=== PATIENT | male | born 1980 | race Caucasian/White ===

== ENCOUNTER 2016-11-04 09:12 | Emergency (ER) | payer MEDICARE, MEDICAID ==
[~2016-11-04] VITALS: Ht 175.3 cm; Wt 76.0 kg
[2016-11-04] MEDS ORDERED: LORAZEPAM 1MG TABLET PO ONE (10:45)
[2016-11-04 10:46] LABS: BASOPHILS % 0.2 % (0.0-2.0); EOSINOPHILS % 1.3 % (0.0-5.0); HEMATOCRIT. 42.2 % (42.0-52.0); HEMOGLOBIN. 14.7 g/dL (14.0-18.0); LYMPHOCYTES % 15.7 % (20.0-50.0); MEAN CORPUSCULAR HEMOGLOBIN 30.3 pg (28.0-32.0); MEAN CORPUSCULAR HGB CONC 34.7 g/dL (31.0-37.0); MEAN CORPUSCULAR VOLUME 87.3 fL (80.0-94.0); MEAN PLATELET VOLUME 7.6 fl (7.4-10.4); MONOCYTES % 5.2 % (2.0-8.0); NEUTROPHILS % 77.6 % (40.0-76.0); PLATELET 339 x1000/uL (130-400); RED BLOOD CELL COUNT 4.83 mill/uL (4.7-6.1); RED CELL DISTRIBUTION WIDTH 14.1 % (11.6-14.6); WHITE BLOOD COUNT 8.9 x1000/uL (4.5-11.0)
[2016-11-04 10:58] LABS: ACETAMINOPHEN < 2 ug/mL (10-30); ALANINE AMINOTRANSFERASE 35 IU/L (13-61); ALBUMIN 4.1 g/dL (3.4-5.0); ANION GAP 12; CALCIUM 8.8 mg/dL (8.5-10.1); CARBON DIOXIDE 23 mEq/L (21-32); CHLORIDE 107 mEq/L (98-107); ETHANOL BLOOD < 10 mg/dL; INDEX HEMOLYSI 1 (1-3); INDEX ICTERIC 1 (1-4); INDEX LIPEMIC 1 (1-3); UREA NITROGEN BLOOD 12 mg/dL (7-21); eGFR > 60 mL/min (>60)
[2016-11-04 11:40] LABS: CLARITY URINE CLEAR (CLEAR); COLOR URINE YELLOW (YELLOW); GLUCOSE URINE NEGATIVE (NEGATIVE); KETONES URINE NEGATIVE (NEGATIVE); LEUKOCYTE ESTERASE URINE NEGATIVE (NEGATIVE); NITRITE URINE NEGATIVE (NEGATIVE); OCCULT BLOOD URINE NEGATIVE (NEGATIVE); PROTEIN URINE NEGATIVE (NEGATIVE); SPECIFIC GRAVITY URINE 1.015 (1.005-1.030)
[2016-11-04 12:02] LABS: *AMPHETAMINES SCREEN URINE NEGATIVE (NEGATIVE); *BARBITURATES SCREEN URINE NEGATIVE (NEGATIVE); *BENZODIAZEPINES SCREEN URINE NEGATIVE (NEGATIVE); *COCAINE SCREEN URINE NEGATIVE (NEGATIVE); CANNABINOID URINE SCREEN NEGATIVE (NEGATIVE); ECSTASY MDMA SCREEN URINE NEGATIVE (NEGATIVE); METHADONE URINE SCREEN NEGATIVE (NEGATIVE); OPIATES URINE SCREEN NEGATIVE (NEGATIVE); PHENCYCLIDINE URINE SCREEN NEGATIVE (NEGATIVE)
[2016-11-04 13:30] VITALS: BP 127/71
== END 2016-11-04 14:02 | disposition left against medical advice (07) ==
LOC: ER 09:32
DX: F31.9 Bipolar disorder, unspecified (principal); G40.909 Epilepsy, unspecified, not intractable, without status epilepticus
CPT/HCPCS: 36415; 80053; 80305; 80307; 80329; 81003; 85025; 99284; G0482

== ENCOUNTER 2019-07-23 13:01 | Emergency (ER) | payer MEDICARE, MEDICAID ==
[~2019-07-23] VITALS: Ht 172.7 cm; Wt 90.0 kg
[2019-07-23] MEDS ORDERED: PHEN-434 PO (13:10)
[2019-07-23] MEDS ORDERED: LORAZEPAM 2MG/ML CPJ IV ONE (15:15)
[2019-07-23] MEDS ORDERED: LEVETIRACETAM 1000MG/100ML 100 ML IV ONE (15:15)
[2019-07-23 15:49] LABS: BASOPHILS % 0.3 % (0.0-2.0); CHLORIDE 109 mEq/L (98-107); EOSINOPHILS % 1.2 % (0.0-5.0); HEMATOCRIT. 41.4 % (42.0-52.0); HEMOGLOBIN. 13.9 g/dL (14.0-18.0); MEAN CORPUSCULAR HEMOGLOBIN 29.1 pg (28.0-32.0); MEAN CORPUSCULAR VOLUME 86.5 fL (80.0-94.0); MEAN PLATELET VOLUME 7.2 fl (7.4-10.4); MONOCYTES % 3.3 % (2.0-8.0); NEUTROPHILS % 81.2 % (40.0-76.0); PLATELET 329 x1000/uL (130-400); RED BLOOD CELL COUNT 4.78 mill/uL (4.7-6.1); RED CELL DISTRIBUTION WIDTH 13.9 % (11.6-14.6)
[2019-07-23 15:53] LABS: ETHANOL BLOOD < 10 mg/dL
[2019-07-23 17:06] VITALS: BP 125/88
== END 2019-07-23 18:30 | disposition home or self-care (01) ==
LOC: ER 13:13
DX: G40.909 Epilepsy, unspecified, not intractable, without status epilepticus (principal); R41.82 Altered mental status, unspecified
CPT/HCPCS: 36415; 70450; 80053; 80320; 85025; 93005; 96365; 96375; 99284; J1953; J2060; G0480

== ENCOUNTER 2021-12-22 15:48 | Emergency (ER) | payer MEDICARE, MEDICAID ==
[~2021-12-22] VITALS: Ht 177.8 cm; Wt 73.0 kg
[~2021-12-22 15:48] MED LIST: PHEN-434 PO
[2021-12-22] MEDS ORDERED: ACETAMINOPHEN 325MG TABLET PO PRN (16:30)
[2021-12-22 17:22] LABS: CHLORIDE 109 mEq/L (98-107)
[2021-12-22 17:28] LABS: ETHANOL BLOOD < 10 mg/dL
[2021-12-22 17:34] LABS: BASOPHILS % 0.3 % (0.0-2.0); EOSINOPHILS % 6.1 % (0.0-5.0); HEMOGLOBIN. 12.8 g/dL (14.0-18.0); LYMPHOCYTES % 21.6 % (20.0-50.0); MEAN CORPUSCULAR HEMOGLOBIN 31.8 pg (28.0-32.0); MEAN CORPUSCULAR VOLUME 89.4 fL (80.0-94.0); MEAN PLATELET VOLUME 7.4 fl (7.4-10.4); MONOCYTES % 5.1 % (2.0-8.0); NEUTROPHILS % 66.9 % (40.0-76.0); PLATELET 260 x1000/uL (130-400); RED BLOOD CELL COUNT 4.03 mill/uL (4.7-6.1); RED CELL DISTRIBUTION WIDTH 13.4 % (11.6-14.6)
[2021-12-22] MEDS ORDERED: QUETIAPINE FUMARATE 50MG TABLET PO NR (21:15)
[2021-12-22] MEDS ORDERED: CLONAZEPAM 1MG TABLET PO SCH (21:45)
[2021-12-22] MEDS ORDERED: HYDROXYZINE 25MG TABLET PO PRN (21:45)
[2021-12-22] MEDS: LAMOTRIGINE 100MG TABLET PO SCH (21:45)
[2021-12-22] MEDS ORDERED: LORAZEPAM 1MG TABLET PO PRN (21:45)
[2021-12-22 23:32] LABS: CLARITY URINE CLEAR (CLEAR); COLOR URINE YELLOW (YELLOW); KETONES URINE NEGATIVE (NEGATIVE); LEUKOCYTE ESTERASE URINE NEGATIVE (NEGATIVE); NITRITE URINE NEGATIVE (NEGATIVE); OCCULT BLOOD URINE NEGATIVE (NEGATIVE); PH URINE 6.5 (4.5-8.0); PROTEIN URINE NEGATIVE (NEGATIVE); SPECIFIC GRAVITY URINE 1.013 (1.005-1.030); UROBILINOGEN URINE 0.2 E.U./dL (0.2-1.0)
[2021-12-22 23:45] LABS: *AMPHETAMINES SCREEN URINE NEGATIVE (NEGATIVE); *BARBITURATES SCREEN URINE NEGATIVE (NEGATIVE); *BENZODIAZEPINES SCREEN URINE PRESUMTIVE POSITIVE (NEGATIVE); *COCAINE SCREEN URINE NEGATIVE (NEGATIVE); CANNABINOID URINE SCREEN NEGATIVE (NEGATIVE); METHADONE URINE SCREEN NEGATIVE (NEGATIVE); OPIATES URINE SCREEN NEGATIVE (NEGATIVE); PHENCYCLIDINE URINE SCREEN NEGATIVE (NEGATIVE)
[2021-12-23] MEDS: LAMOTRIGINE 100MG TABLET PO SCH (08:59)
[2021-12-23] MEDS ORDERED: OXCARBAZEPINE 300MG TABLET PO SCH (09:00)
[2021-12-23 10:09] VITALS: BP 112/69
== END 2021-12-23 11:05 | disposition home or self-care (01) ==
LOC: ER 15:48
DX: F32.9 Major depressive disorder, single episode, unspecified (principal); R45.851 Suicidal ideations; F20.9 Schizophrenia, unspecified; Z20.822 Contact with and (suspected) exposure to COVID-19
CPT/HCPCS: 36415; 80053; 80305; 80320; 81003; 85025; 99285; C9803; U0003; U0005; G0480

== ENCOUNTER 2024-10-11 18:23 | Emergency (ER) | payer MEDICARE, MEDICAID ==
[~2024-10-11] VITALS: Ht 172.7 cm; Wt 98.0 kg
[2024-10-11 18:28] VITALS: O2SAT 100
[2024-10-11 20:02] LABS: BASOPHILS % 0.2 % (0.0-2.0); HEMATOCRIT. 39.7 % (42.0-52.0); HEMOGLOBIN. 13.3 g/dL (14.0-18.0); LYMPHOCYTES % 7.9 % (20.0-50.0); MEAN CORPUSCULAR HEMOGLOBIN 30.5 pg (28.0-32.0); MEAN CORPUSCULAR HGB CONC 33.5 g/dL (31.0-37.0); MEAN PLATELET VOLUME 8.2 fl (7.4-10.4); NEUTROPHILS % 86.9 % (40.0-76.0); PLATELET 296 x1000/uL (130-400); RED BLOOD CELL COUNT 4.36 mill/uL (4.7-6.1); RED CELL DISTRIBUTION WIDTH 13.4 % (11.6-14.6); WHITE BLOOD COUNT 11.7 x1000/uL (4.5-11.0)
[2024-10-11 20:10] LABS: CARBON DIOXIDE 24 mEq/L (21-32); CHLORIDE 112 mEq/L (98-107); POTASSIUM 3.2 mEq/L (3.5-5.1); SODIUM 145 mEq/L (136-145)
[2024-10-11 20:11] LABS: CALCIUM 9.8 mg/dL (8.7-10.4)
[2024-10-11 20:16] LABS: CREATININE 0.8 mg/dL (0.6-1.3); GLUCOSE 121 mg/dL (70-105)
[2024-10-11 20:17] LABS: ETHANOL BLOOD < 10 mg/dL (<10); UREA NITROGEN BLOOD 7 mg/dL (9-23)
[2024-10-11 20:18] LABS: ACETAMINOPHEN < 2 ug/mL (10-30)
[2024-10-11] MEDS: LEVETIRACETAM 500MG TABLET PO SCH (21:30)
[2024-10-11 21:37] LABS: CLARITY URINE CLEAR (CLEAR); COLOR URINE YELLOW (YELLOW); GLUCOSE URINE NEGATIVE (NEGATIVE); KETONES URINE TRACE (NEGATIVE); LEUKOCYTE ESTERASE URINE NEGATIVE (NEGATIVE); NITRITE URINE NEGATIVE (NEGATIVE); OCCULT BLOOD URINE NEGATIVE (NEGATIVE); PH URINE 5.5 (4.5-8.0); PROTEIN URINE TRACE (NEGATIVE); SPECIFIC GRAVITY URINE 1.017 (1.005-1.030)
[2024-10-11 21:48] LABS: *AMPHETAMINES SCREEN URINE NEGATIVE (NEGATIVE); *BARBITURATES SCREEN URINE NEGATIVE (NEGATIVE); *BENZODIAZEPINES SCREEN URINE NEGATIVE (NEGATIVE)
[2024-10-11 21:49] LABS: *COCAINE SCREEN URINE NEGATIVE (NEGATIVE); CANNABINOID URINE SCREEN NEGATIVE (NEGATIVE); ECSTASY MDMA SCREEN URINE NEGATIVE (NEGATIVE); METHADONE URINE SCREEN NEGATIVE (NEGATIVE); OPIATES URINE SCREEN NEGATIVE (NEGATIVE); PHENCYCLIDINE URINE SCREEN NEGATIVE (NEGATIVE)
[2024-10-11 21:55] LABS: BACTERIA URINE NONE SEEN; RBC URINE NONE SEEN /hpf (0-2); SQUAMOUS EPITHELIAL CELL URINE RARE /lpf (RARE/1+); WBC URINE NONE SEEN /hpf (0-2)
[2024-10-12] MEDS: POTASSIUM CHLORIDE 20MEQ/PACKET PO ONE (00:10)
[2024-10-12] MEDS: HALOPERIDOL LACTATE 5MG/ML VIAL IM ONE (00:10)
[2024-10-12 09:59] VITALS: BP 118/65; PULSE 70; RESP 18; TEMP 37.1; O2SAT 100
== END 2024-10-12 10:52 | disposition home or self-care (01) ==
LOC: ER 18:23
DX: F20.9 Schizophrenia, unspecified (principal); F31.9 Bipolar disorder, unspecified; G40.909 Epilepsy, unspecified, not intractable, without status epilepticus; Z79.899 Other long term (current) drug therapy; Z59.00 Homelessness unspecified; Z20.822 Contact with and (suspected) exposure to COVID-19
CPT/HCPCS: 80305; 80048; 81003; 80307; 80329; 80320; 85025; 36415; 99285; 87426; 96372; J1630; G0480